=== PATIENT | male | born 1995 | race African-American/Black ===

== ENCOUNTER 2022-12-10 08:35 | Day surgery (SDC) | payer BC, SELFPAY ==
[2022-12-10] VITALS (26 sets, daily range): BP systolic 132–175; BP diastolic 90–112; PULSE 76–108; RESP 16–18; TEMP 36.9–37.3; O2SAT 76–100; BMI 22.6
--- NOTE | 2022-12-10 09:19 | CRLHL7_ITS ---
For Patients: As a result of the Century Cures Act, medical imaging exams and procedure reports are released immediately into your electronic medical record. You may view this report before your referring provider. If you have questions, please contact your health care provider. Indication: Right lower quadrant pain Technique: Volumetric multidetector CT images of the abdomen and pelvis were obtained after the administration of intravenous contrast. 86 cc Isovue 370 low osmolar intravenous contrast Comparison: None available. Findings: The lung bases are clear. The liver is normal in attenuation without intrahepatic biliary ductal dilatation. The portal vein is patent. The gallbladder is unremarkable without evidence of radiopaque calculus. There is no significant common biliary ductal dilatation or abrupt cut off. The spleen is normal in enhancement and size. The stomach and duodenum are grossly unremarkable. The pancreas is normal in enhancement without significant atrophy. The adrenal glands are unremarkable. The kidneys demonstrate preserved corticomedullary differentiation without evidence of obstructive uropathy. There are fluid-filled loops mid to distal small bowel with minimal fluid-filled colon. There is a markedly dilated, fluid-filled appendix with moderate periappendiceal inflammatory change measuring up to 1.2 centimeters in greatest dimension there is a somewhat fatty appearance appreciated. No obvious appendicolith. There is no significant mesenteric, retroperitoneal, or pelvic sidewall lymph nodes. The aorta is nonaneurysmal. There is no significant atherosclerotic disease appreciated. The solid pelvic viscera are grossly unremarkable. There is no free fluid or free air. There is a small fat containing umbilical hernia. The lumbar vertebral body heights are grossly maintained with mild straightening of the normal lumbar lordosis. There is no significant spondylolisthesis or displaced fracture. Impression: Demonstration of a fat containing dilated tubular structure in the right lower quadrant measuring up to 1.2 centimeters with marked peripheral inflammatory change likely representing developing appendicitis. Additional differential considerations could include mildly complicated epiploic appendagitis. No normal appendix is identified otherwise. Nonspecific fluid within the central small bowel and proximal colon is identified consistent with likely developing enterocolitis. Findings were discussed with Ceci Polanco at 10:50 a.m. December 10, 2022 Please note that all CT scans at this facility use dose modulation, iterative reconstruction, and/or weight-based dosing when appropriate to reduce radiation dose to as low as reasonably achievable. Dictated by Jovany Zimmerman MD @ 12/10/2022 10:55:31 AM (Electronically Signed)
[2022-12-10] MEDS: 0.9 % SODIUM CHLORIDE 1000 ml 1,000 ML IV (09:34)
[2022-12-10 09:52] LABS: Basophils Absolute Auto 0.01 K/uL (0.00-0.30); Basophils Percent Auto 0.1 % (0.0-3.0); Eosinophils Absolute Auto 0.01 K/uL (0.00-0.50); Eosinophils Percent Auto 0.1 % (0.0-7.0); Hematocrit 38.3 % (37.0-53.0); Hemoglobin* 13.4 gm/dL (13.5-17.5); Immature Granulocytes Abs Auto 0.07 K/uL (0.00-0.30); Immature Granulocytes Pct Auto 0.7 %; Lymphocytes Percent Auto 17.3 % (20-44); Mean Corpuscular HGB Conc 35 gm/dL (32-36); Mean Corpuscular Hemoglobin 32 pg (26-34); Mean Corpuscular Volume 92 fL (80-100); Monocytes Percent Auto 12.2 % (0.0-11.0); Neutrophils Absolute Auto 7.05 K/uL (1.7-7.0); Neutrophils Percent Auto 69.6 % (42.0-72.0); Platelet Count* 230 K/uL (140-440); RDW Coefficient of Variation % 12.2 % (11.5-15.5); Red Blood Count 4.18 m/uL (4.30-5.90); White Blood Count* 10.12 K/uL (4.50-11.00)
[2022-12-10 09:53] LABS: Slide Review Reflex No
[2022-12-10 10:04] LABS: Chloride* 93 mmol/L (96-114); Sodium* 133 mmol/L (135-149)
[2022-12-10 10:06] LABS: Creatinine* 0.5 mg/dL (0.5-1.5); Est. Creatinine Clearance* 246.15; Estimated Glomerular Filt Rate 142 ml/min
[2022-12-10 10:07] LABS: Blood Urea Nitrogen* 4 mg/dL (5-24); Calcium* 9.3 mg/dL (8.4-10.6); Carbon Dioxide* 31 mmol/L (20-32); Glucose* 110 mg/dL (60-115)
[2022-12-10 10:21] LABS: Appearance Urine Clear (Clear); Bilirubin Urine Negative (Negative); Blood Urine Negative (Negative); C Reactive Protein* 17.3 mg/dL (0.5-1.0); Color Urine Yellow (Yellow); Glucose Urine Negative (Negative); Ketones Urine 2+ (Negative); Leukocyte Esterase Urine Negative (Negative); Nitrite Urine Negative (Negative); Potassium* 2.9 mmol/L (3.6-5.1); Protein Urine Negative (Negative); Specific Gravity Urine <= 1.005 (1.000-1.030); Urobilinogen Urine 0.2 (0.2-1.0); pH Urine 6.5 (5.0-8.5)
--- NOTE | 2022-12-10 10:21 | ED.NURSE ---
Lab called for a critical K 2.[address] Polanco
[2022-12-10 10:30] LABS: RBC Urine 0-2 (0-2); Squamous Epithelial Cell Urine Few (None-Few); WBC Urine 0-2 (0-5)
[2022-12-10 10:31] LABS: SARS PCR* Negative SARS-CoV-2 (Negative)
[2022-12-10] MEDS: POTASSIUM CHLORIDE 10 MEQ/100 ML PIGGYBACK 100 MEQ IVPB (11:01)
[2022-12-10] MEDS: POTASSIUM CHLORIDE 10 MEQ CAPSULE ER 40 MEQ PO (11:28)
[2022-12-10] MEDS: MORPHINE 4 MG/ML INJ IVP (11:29)
--- NOTE | 2022-12-10 11:30 | PM.GSHP ---
History of Present Illness History of Present Illness Date Seen: 12/10/22 Chief complaint: constipated, stomach pains 3+ days Narrative: Ravin Ward is a 27 year old male who presents with 3 days of abdominal pain. On Saturday evening he noted pain in the middle of the stomach. Over the weekend it moved to his right lower quadrant. He has never had pain like this before. Denies nausea or vomiting. On Saturday he had a watery bowel movement but has not had a bowel movement since. He states that when he urinates he will have pain in his right groin. Movement and stretching makes the pain worse. He has not had any fevers. He is otherwise healthy. He last ate this morning at 4:00 a.m.. He had chicken Tu. He had water at 7:00 a.m.. He was noted to be hypokalemic and was given 2 potassium tabs in the emergency department. Review of Systems Status of ROS: Reports: 10 or more systems reviewed and unremarkable except as noted in History and below [facility] Social History (Updated 12/10/22 @ 11:59 by Leticia Kiser MD) Narrative: He works for [employer]- does not do a lot of lifting. He drinks 4-6 drinks/week Smoking Status: Light tobacco smoker What tobacco products do you use: cigars Do you use any of these nicotine containing products: None Second hand tobacco smoke exposure: No How often do you have a drink containing alcohol: 4 or more times a week How many standard drinks containing alcohol do you have on a typical day: 7 to 9 How often do you have six or more drinks on one occasion: Daily or almost daily AUDIT-C Alcohol total score: 11 Non-prescribed substance use: denies use service: No Meds Home Medications and Allergies Allergies Allergy/AdvReac Type Severity Reaction Status Date / Time No Known Drug Allergies Allergy Verified 12/10/22 08:50 Exam Narrative: Exam Narrative: General appearance: Alert, cooperative, and in no distress Eyes: PERRLA, eye lids clear, and sclera white HENT Head: Normocephalic Ears: External ears normal Pulmonary: Clear to auscultation bilaterally Cardiovascular Heart: Regular rate and rhythm Extremities: warm and well perfused Gastrointestinal Abdominal: No scars. No hernias. Tenderness in the right lower quadrant with palpation of the left. Guarding and rebound with palpation on the right lower quadrant. Musculoskeletal: Extremities: Upper: Both upper extremities have normal joint range of motion and intact strength. Lower: Both lower extremities have normal joint range of motion and intact strength. Skin: Normal skin color, texture, and turgor. No rashes or lesions. Neurologic: No focal deficits Psychiatric: Alert, oriented, cooperative, normal affect. Const: Vital Signs, click to edit/add: Vital Signs - 24 hr 12/10/22 08:50 12/10/22 09:04 Temperature 98.5 F Pulse Rate [Pulse Oximeter] 90 82 Respiratory Rate 18 Blood Pressure [Le ft Upper Arm] 147/109 H 138/99 H Pulse Oximetry 100 100 Oxygen Delivery Me thod Room Air Room Air Results Results Labs: Potassium is 2.9 Mildly hyponatremic with a sodium of 133 White blood cell count is [address] scan report/results: report reviewed and image reviewed Additional studies: Diagnostic Imaging Report Patient: Ravin Ward MR#: [id number] : 1995 Acct:[id number] Loc: ED Service Date: 12/10/[address]: Ordering Physician: Ceci Polanco M.D. Date of Service: 12/10/22 Procedure(s): CT abdomen pelvis w con Accession Number(s): [id number] cc: Ceci Polanco M.D.; Provider,Not a Local ~ For Patients:? As a result of the Cures Act, medical imaging exams and procedure reports are released immediately into your electronic medical record.? You may view this report before your referring provider.? If you have questions, please contact your health care provider. Indication: Right lower quadrant pain Technique: Volumetric multidetector CT images of the abdomen and pelvis were obtained after the administration of intravenous contrast. 86 cc Isovue 370 low osmolar intravenous contrast Comparison: None available. Findings: The lung bases are clear. The liver is normal in attenuation without intrahepatic biliary ductal dilatation. The portal vein is patent. The gallbladder is unremarkable without evidence of radiopaque calculus. There is no significant common biliary ductal dilatation or abrupt cut off. The spleen is normal in enhancement and size. The stomach and duodenum are grossly unremarkable. The pancreas is normal in enhancement without significant atrophy. The adrenal glands are unremarkable. The kidneys demonstrate preserved corticomedullary differentiation without evidence of obstructive uropathy. There are fluid-filled loops mid to distal small bowel with minimal fluid-filled colon. There is a markedly dilated, fluid-filled appendix with moderate periappendiceal inflammatory change measuring up to 1.2 centimeters in greatest dimension there is a somewhat fatty appearance appreciated. No obvious appendicolith. There is no significant mesenteric, retroperitoneal, or pelvic sidewall lymph nodes. The aorta is nonaneurysmal.? There is no significant atherosclerotic disease appreciated. The solid pelvic viscera are grossly unremarkable. There is no free fluid or free air. There is a small fat containing umbilical hernia. The lumbar vertebral body heights are grossly maintained with mild straightening of the normal lumbar lordosis. There is no significant spondylolisthesis or displaced fracture. Impression: Demonstration of a fat containing dilated tubular structure in the right lower quadrant measuring up to 1.2 centimeters with marked peripheral inflammatory change likely representing developing appendicitis. Additional differential considerations could include mildly complicated epiploic appendagitis. No normal appendix is identified otherwise. Nonspecific fluid within the central small bowel and proximal colon is identified consistent with likely developing enterocolitis. Assessment and Plan Assessment and plan (1) Hypokalemia: Status: Acute (2) Hyponatremia: Status: Acute (3) Acute appendicitis: Status: Acute Plan The patient is a 27-year-old male with likely acute appendicitis. We discussed that appendectomy is the preferred treatment for this. This can most often be done laparoscopically. We discussed risks and benefits of the procedure including but not limited to bleeding, need for conversion to open, risk of injury to other structures, need for possible bowel resection, and abscess formation. The patient understands that the risk of abscess is higher if the appendix is perforated. For that reason, we generally keep patient is in the hospital on IV antibiotics until vital signs and white blood cell count had normalized. We also discussed recovery including 2 weeks of lifting restrictions. He is also noted to be hypokalemic and hyponatremic. This is likely from decreased oral intake. He has received potassium supplementation. This was discussed with Anesthesia and is not a contraindication to surgery. We will recheck a BMP. If additional potassium is require then we will replace this.
[2022-12-10] MEDS: PIPERACILLIN/TAZOBACTAM 3.375 GM INJ IVPB (12:14)
[2022-12-10] MEDS: BUPIVACAINE 0.25% 30 ML 10 ML INJECTION (12:34)
--- NOTE | 2022-12-10 12:44 | SUR.OPER ---
PATIENT QUESTIONS ANSWERED SATISFACTORILY PREOPERATIVELY. PATIENT BROUGHT TO OR #4 PER WHEELCHAIR. Patient positioned supine on OR #4 bed.? Perioperative team supported right arm on arm board. LEFT ARM IS TUCKED IN A NEUTRAL POSITION USING THE DRAWSHEET. Final approval of positioning by surgeon.
--- NOTE | 2022-12-10 13:05 | W.ANESCHARGE ---
Anesthesia Charges Start Date/Time Anesthesia Start Date: 12/10/22 Anesthesia Start Time: 12:08 Stop Date/Time Anesthesia Stop Date: 12/10/22 Anesthesia Stop Time: 13:29 Summary Emergency: MDA
--- NOTE | 2022-12-10 13:18 | ED.GENADULT ---
HPI - General Adult General Date Seen: 12/10/22 Chief complaint: Abdominal Pain Stated complaint: constipated, stomach pains 3+ days Time Seen by Provider: 12/10/22 09:12 Source: patient Mode of arrival: ambulatory Limitations: no limitations History of Present Illness HPI narrative: Patient is a 27-year-old male who presents for evaluation of right lower quadrant pain that started Saturday night. He presents on Saturday morning to the ER. He says that he has had trouble with constipation, and wonders if that is the problem. However, pain has been worsening since Saturday night and has never had anything like this before. He has abdominal pain with urination and feels more comfortable if he sits down to urinate, but he has not had dysuria or hematuria. Pain does radiate into the inguinal region and a little bit into the testicle as well. He has not noted any testicular swelling or redness. He denies trauma. He has not had fevers. He has not had nausea or vomiting but says he has not been eating because he does not know what to eat the will not upset his stomach. He denies previous abdominal surgeries or other medical history. No allergies, does not smoke or drink. Related Data Previous Rx's Medication Instructions Recorded hydrocodone 5 mg-acetaminophen 325 1 - 2 tab PO Q6H PRN Pain #14 tabs 12/10/22 mg tablet Allergies Allergy/AdvReac Type Severity Reaction Status Date / Time No Known Drug Allergies Allergy Verified 12/10/22 08:50 Review of Systems Status of ROS: Reports: 10 or more systems reviewed and unremarkable except as noted in History and below PFSH PFSH Social History Narrative: He works for [employer]- does not do a lot of lifting. He drinks 4-6 drinks/week Smoking Status: Light tobacco smoker What tobacco products do you use: cigars Do you use any of these nicotine containing products: None Second hand tobacco smoke exposure: No How often do you have a drink containing alcohol: 4 or more times a week How many standard drinks containing alcohol do you have on a typical day: 7 to 9 How often do you have six or more drinks on one occasion: Daily or almost daily AUDIT-C Alcohol total score: 11 Non-prescribed substance use: denies use service: No Exam Narrative: Exam Narrative: Vital signs as noted above. In general, an alert, well-appearing patient. Head: Normocephalic, atraumatic. Eyes: Pupils are equal reactive. Extraocular movements are full. Conjunctivae are normal. ENT: Mucous membranes are moist. Throat is normal. Neck: Supple without lymphadenopathy. Heart: Regular rate and rhythm. No murmur or rub. Lungs: Clear bilaterally. No increased work of breathing, crackles or wheezes. Abdomen: Mildly distended, does not have specifically upper abdominal tenderness although palpation of the upper abdomen worsens his right lower abdominal tenderness. He has guarding and tenderness of the right lower quadrant and suprapubic region. No rebound tenderness. : Testes are nontender bilaterally, no edema or erythema. Extremities: Well perfused. No edema. No calf tenderness. Pulses intact. Neurologic: Patient is alert and oriented to person and place. Speech is fluent. Face is symmetric. Moves all extremities equally. Affect: Normal. Skin: Warm and dry. Well perfused. Const: Vital Signs, click to edit/add: Vital Signs - 24 hr 12/10/22 08:50 12/10/22 09:04 Temperature 98.5 F Pulse Rate [Pulse Oximeter] 90 82 Respiratory Rate 18 Blood Pressure [Le ft Upper Arm] 147/109 H 138/99 H Pulse Oximetry 100 100 Oxygen Delivery Me thod Room Air Room Air Documenting provider has reviewed patient's vital signs: yes Course Reevaluation(s) Reevaluation #1: Initially, place an IV and gave a L of normal saline. He declined medications for pain initially but later did decide that he would like something was given morphine 4 mg. Labs were most notable for a potassium of 2.9, I did give him 40 mEq of potassium in tablet form with a small amount of water in anticipation of possible appendicitis and need to go to the ER. He had an EKG here, did have U waves but no other significant findings on EKG. Normal sinus rhythm. Otherwise, his white blood cell count was normal at 10.12 without a significant left shift. His CRP was significantly elevated at 17. He had a CT of the abdomen and pelvis with contrast. By my review this showed significant inflammatory changes in the right lower quadrant, I was not able to specifically identify the appendix. The final radiology read was probable appendicitis, they did notice structure that they felt was likely the appendix although the radiologist said there was a little bit of fat inside the lumen of that, and they could not definitively say whether this was the appendix or whether this was epiploic appendagitis. I have discussed his case with the surgeon. Clinically, I certainly am suspicious of appendicitis. Plan will be to taken to the operating room. He has been hemodynamically stable, no other complaints. Vital Signs Vital signs: Initial Vital Signs Temperature 98.5 F 12/10/22 08:50 Temperature Source Temporal Artery Scan 12/10/22 08:50 Pulse Rate 90 12/10/22 08:50 Pulse Rhythm 12/10/22 08:50 Respiratory Rate 18 12/10/22 08:50 Blood Pressure 147/109 H 12/10/22 08:50 Blood Pressure Mean 121 12/10/22 08:50 Blood Pressure Position Supine 12/10/22 08:50 Pulse Oximetry 100 12/10/22 08:50 Oxygen Delivery Method 12/10/22 08:50 Vital Signs Temperature 98.5 F 12/10/22 08:50 Pulse Rate 90 12/10/22 08:50 Respiratory Rate 18 12/10/22 08:50 Blood Pressure 147/109 H 12/10/22 08:50 Pulse Oximetry 100 12/10/22 08:50 Oxygen Delivery Method 12/10/22 08:50 Temperature 98.5 F 12/10/22 08:50 Pulse Rate 82 12/10/22 09:04 Respiratory Rate 18 12/10/22 08:50 Blood Pressure 138/99 H 12/10/22 09:04 Pulse Oximetry 100 12/10/22 09:04 Oxygen Delivery Method 12/10/22 09:04 Medical Decision Making Lab Data Labs: Lab Results 12/10/22 12/10/22 12/10/22 Range/Units 09:20 09:20 09:20 WBC 10.12 (4.50-11.00) K/uL RBC 4.18 L (4.30-5.90) m/uL Hgb 13.4 L (13.5-17.5) gm/dL Hct 38.3 (37.0-53.0) % MCV 92 (80-100) fL MCH 32 (26-34) pg MCHC 35 (32-36) gm/dL RDW Coeff of Layla 12.2 (11.5-15.5) % Plt Count 230 (140-440) K/uL Neut % (Auto) 69.6 (42.0-72.0) % Lymph % (Auto) 17.3 L (20-44) % [place] % (Auto) 12.2 H (0.0-11.0) % Eos % (Auto) 0.1 (0.0-7.0) % Baso % (Auto) 0.1 (0.0-3.0) % Neut # (Auto) 7.05 H (1.7-7.0) K/uL Lymph # (Auto) 1.80 (0.90-2.90) K/uL [place] # (Auto) 1.20 H (0.00-0.90) K/UL Eos # (Auto) 0.01 (0.00-0.50) K/uL Baso # (Auto) 0.01 (0.00-0.30) K/uL Sodium 133 L (135-149) mmol/L Potassium 2.9 L* (3.6-5.1) mmol/L Chloride 93 L (96-114) mmol/L Carbon Dioxide 31 (20-32) mmol/L BUN 4 L (5-24) mg/dL Creatinine 0.5 (0.5-1.5) mg/dL Estimated Creat Clear 246.15 Estimated GFR 142 ml/min Glucose 110 (60-115) mg/dL Calcium 9.3 (8.4-10.6) mg/dL C-Reactive Protein (0.5-1.0) mg/dL Urine Color Yellow (Yellow) Urine Appearance Clear (Clear) Urine pH 6.5 (5.0-8.5) Ur Specific Maxwell <= 1.005 (1.000-1.030) Urine Protein Negative (Negative) Urine Glucose (UA) Negative (Negative) Urine Ketones 2+ A (Negative) Urine Blood Negative (Negative) Urine Nitrite Negative (Negative) Urine Bilirubin Negative (Negative) Urine Urobilinogen 0.2 (0.2-1.0) Ur Leukocyte Esterase Negative (Negative) Urine RBC 0-2 (0-2) Urine WBC 0-2 (0-5) Ur Squamous Epith Cells Few (None-Few) Urine Bacteria None (None) SARS-CoV-2 (PCR) (Negative) 12/10/22 12/10/22 Range/Units 09:20 09:20 WBC (4.50-11.00) K/uL RBC (4.30-5.90) m/uL Hgb (13.5-17.5) gm/dL Hct (37.0-53.0) % MCV (80-100) fL MCH (26-34) pg MCHC (32-36) gm/dL RDW Coeff of Layla (11.5-15.5) % Plt Count (140-440) K/uL Neut % (Auto) (42.0-72.0) % Lymph % (Auto) (20-44) % [place] % (Auto) (0.0-11.0) % Eos % (Auto) (0.0-7.0) % Baso % (Auto) (0.0-3.0) % Neut # (Auto) (1.7-7.0) K/uL Lymph # (Auto) (0.90-2.90) K/uL [place] # (Auto) (0.00-0.90) K/UL Eos # (Auto) (0.00-0.50) K/uL Baso # (Auto) (0.00-0.30) K/uL Sodium (135-149) mmol/L Potassium (3.6-5.1) mmol/L Chloride (96-114) mmol/L Carbon Dioxide (20-32) mmol/L BUN (5-24) mg/dL Creatinine (0.5-1.5) mg/dL Estimated Creat Clear Estimated GFR ml/min Glucose (60-115) mg/dL Calcium (8.4-10.6) mg/dL C-Reactive Protein 17.3 H (0.5-1.0) mg/dL Urine Color (Yellow) Urine Appearance (Clear) Urine pH (5.0-8.5) Ur Specific Maxwell (1.000-1.030) Urine Protein (Negative) Urine Glucose (UA) (Negative) Urine Ketones (Negative) Urine Blood (Negative) Urine Nitrite (Negative) Urine Bilirubin (Negative) Urine Urobilinogen (0.2-1.0) Ur Leukocyte Esterase (Negative) Urine RBC (0-2) Urine WBC (0-5) Ur Squamous Epith Cells (None-Few) Urine Bacteria (None) SARS-CoV-2 (PCR) Negative SARS-CoV-2 (Negative)
--- NOTE | 2022-12-10 13:21 | PM.GSPRC ---
Operative Note Date of procedure: 12/10/22 Pre-op diagnosis: Acute appendicitis Post-op diagnosis: Same Type of Procedure: Laparoscopic appendectomy Indications: The patient is a 27-year-old male who presented with 3 days of right lower quadrant pain. Workup revealed acute appendicitis. After discussion of management for this he agreed to proceed with appendectomy. Procedure Description: After discussing the risks and benefits of the procedure, the patient signed informed consent.? The operative site was marked and the patient was brought to the operating room and placed on the operating table in supine position.? Care was taken to pad the patient's pressure points.?? The patient was then [intubated/given sedation] by anesthesia.?? The operative site was then prepped and draped in the usual sterile fashion.? A time-out was then performed. Entrance to the abdomen was obtained via a 5 mm optical trocar in the left upper quadrant. The abdomen was insufflated and briefly surveyed for any signs of injury. There were none. A 12 mm port was placed inferior to the umbilicus as well as a 5 mm port in the left lower quadrant. Both were done under direct vision. The patient was then placed in Trendelenburg position with the right side up. There was no overt purulence in the abdomen. The small bowel was stuck to the right lower quadrant, walling off the appendix. This easily fell away with minimal blunt dissection. The base of the appendix was visualized. The appendix was grasped and pulled into view. A mesenteric window was created between the base of the appendix and the mesoappendix. An Endo-ANDRE purple load stapler was then used to transect the appendix at its base. The tip of the appendix was somewhat stuck in the right upper pelvis. This was carefully dissected free using a combination of blunt dissection and hook cautery. Once this was done, A vascular load stapler was then used to divide the mesoappendix. The staple lines were inspected for bleeding. There was a small clot on the appendiceal base staple line. Once this was removed there was bleeding noted. A clip was placed across the staple line which resulted in hemostasis. The area was examined and no further bleeding was noted. A piece of Surgicel was placed over the staple lines. The appendix was then removed from the abdomen using an Endo-Catch bag. The specimen was sent to pathology. The abdomen was desufflated and the ports were removed. The 12 mm port site fascia was closed with 0 Vicryl. The skin was then closed with absorbable subcuticular suture. Sterile dressings were then applied. Instrument sponge and needle counts were correct at the end of the case. The patient was then woken and transported to the PACU in stable condition. ? The patient tolerated the procedure well. Findings: Acute non perforated appendicitis. Anesthesia: GETA Surgeon: Leticia Kiser MD Estimated blood loss (mL): 5 Specimen: Appendix Condition: stable Disposition: PACU
--- NOTE | 2022-12-10 13:33 | P.ANES_ITS ---
Anesthesia Charges Start Date/Time Anesthesia Start Date: 12/10/22 Anesthesia Start Time: 12:08 Stop Date/Time Anesthesia Stop Date: 12/10/22 Anesthesia Stop Time: 13:29 Summary Emergency: [facility]
[2022-12-10] MEDS: HYDRALAZINE HCL 20 MG/ML inj 10 MG IVP (13:49)
[2022-12-10] MEDS: METOCLOPRAMIDE HCL 5 MG/ML INJ 10 MG IVP (14:20)
[2022-12-10] MEDS: fentaNYL 100 MCG/2 ML inj 50 MCG IVP (14:20)
[2022-12-10 14:22] LABS: Chloride* 99 mmol/L (96-114); Potassium* 3.4 mmol/L (3.6-5.1); Sodium* 133 mmol/L (135-149)
[2022-12-10 14:25] LABS: Carbon Dioxide* 27 mmol/L (20-32); Creatinine* 0.6 mg/dL (0.5-1.5); Est. Creatinine Clearance* 205.12; Estimated Glomerular Filt Rate 134 ml/min
[2022-12-10 14:26] LABS: Blood Urea Nitrogen* 3 mg/dL (5-24); Calcium* 8.3 mg/dL (8.4-10.6); Glucose* 113 mg/dL (60-115)
== END 2022-12-10 15:00 | disposition home or self-care (01) ==
LOC: ED 11:32 → SS 12:05
PROVIDERS: Emergency Provider Emergency Medicine; Visit Provider Surgery
PROC: 0DTJ4ZZ Resection of Appendix, Percutaneous Endoscopic Approach (ICD-10-PCS; CPT 44970; principal; 2022-12-10 13:25)
DX: K35.80 Unspecified acute appendicitis (principal); E87.1 Hypo-osmolality and hyponatremia; E87.6 Hypokalemia; Z72.0 Tobacco use
CPT/HCPCS: 44970; 00840; 36415; 74177; 80048; 81001; 84132; 85025; 86140; 87635; 88304; 93005; 99140; 99284; 99285; A9270; J0330; J0360; J1100; J1885; J2270; J2405; J2543; J2704; J2765; J3010; J3480; J3490; J7030; Q9967